=== PATIENT | female | born 1975 | race Caucasian/White ===

== ENCOUNTER 2017-07-30 00:41 | Emergency (ER) | payer OTHER ==
[~2017-07-30] VITALS: Ht 154.9 cm; Wt 60.0 kg
[2017-07-30 00:52] VITALS: BP 130/77; PULSE 110; RESP 20; TEMP 97.8; O2SAT 100
[2017-07-30] MEDS ORDERED: ASPI-516 CHEW (00:56)
[2017-07-30] MEDS ORDERED: AUGM875T3 PO (00:56)
--- NOTE | 2017-07-30 01:30 | PD ---
HPI Chief Complaint: Related Problem Time Seen by Provider: 01:04 Travel History International Travel<30 days: No Contact w/Intl Traveler<30days: No Traveled to known affect area: No History of Present Illness HPI 41 y/o female presents with vaginal bleeding that started 15 minutes prior to arrival. She states she felt it on her legs and noticed when she was in the bathroom to check. She denies any pain, fever, dysuria, hematuria or any other concurrent complaints. She states she is 15 weeks . She states she has been 5 other times and had 2 miscarriages. She states she is currently on an aspirin given she has history of preeclampsia. She is visiting from [place] and on her way back up there. She denies modifying factors. [facility] Past Medical History ?: LMP: 04/16/17 Past Surgical History Surgical History: No Previous Surgery Social History Tobacco Use: No Allergies-Medications (Allergen,Severity, Reaction): Coded Allergies: Sulfa (Sulfonamide Antibiotics) (Verified Allergy, Severe, angioedema, 07/30) Reported Meds & Prescriptions Reported Meds & Active Scripts Active Reported Augmentin (Amoxicillin-Clavulanate) 875-125 Mg Tab 1 Tab PO BID Aspirin 81 Mg Chew 81 Mg CHEW DAILY Review of Systems Except as stated in HPI: all other systems reviewed are Neg Physical Exam Narrative GENERAL: 41-year-old female in no apparent distress SKIN: Focused skin assessment warm/dry. HEAD: Atraumatic. Normocephalic. EYES: Pupils equal and round. No scleral icterus. No injection or drainage. ENT: No nasal bleeding or discharge. Mucous membranes pink and moist. NECK: Trachea midline. No JVD. CARDIOVASCULAR: Regular rate and rhythm. RESPIRATORY: No accessory muscle use. No increased effort GASTROINTESTINAL: Abdomen soft, non-tender Pelvic: External genitalia normal, very small amount of dried blood noted to toilet paper, no active bleeding coming from office, patient agrees to hold on speculum exam MUSCULOSKELETAL: No obvious deformities. No clubbing. No cyanosis. No edema. NEUROLOGICAL: Awake and alert. No obvious cranial nerve deficits. Motor grossly within normal limits. Normal speech. PSYCHIATRIC: Appropriate mood and affect; insight and judgment normal. Data Data Last Documented VS Vital Signs Date Time Temp Pulse Resp B/P (MAP) Pulse Ox O2 Delivery O2 Flow Rate FiO2 3/3/18 01:37 07/30/17 00:52 97.8 110 20 100 Room Air Orders Orders Ed Discharge Order (07/30/17 01:25) MDM Medical Decision Making Medical Screen Exam Complete: Yes Emergency Medical Condition: Yes Medical Record Reviewed: Yes Differential Diagnosis Miscarriage, threatened miscarriage, Narrative Course Patient's blood type is B+. She just started spotting shortly prior to arrival. Vitals are stable. Patient without pain. Patient is 15 weeks . She has no other symptoms. Emergency Department Pelvic ultrasound was performed with patient consent. The curvilinear probe was used in the transverse and sagittal views within the suprapubic region revealing single intrauterine . heart rate was 167. movement noted Patient updated after discussion with OB who did not recommend any other testing here. 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
== END 2017-07-30 02:02 | disposition home or self-care (01) ==
LOC: NEPC 00:41
DX: O46.92 Antepartum hemorrhage, unspecified, second trimester (principal); Z3A.15 15 weeks gestation of pregnancy; Z79.82 Long term (current) use of aspirin; Z88.2 Allergy status to sulfonamides
CPT/HCPCS: 99284